=== PATIENT | male | born 1950 | race Caucasian/White ===

== ENCOUNTER 2024-02-21 13:39 | Emergency (ER) | payer MEDICARE ==
[2024-02-21 14:28] LABS: INR 1.76; PROTHROMBIN TIME 18.1 SECONDS (9.7-12.0)
[2024-02-21 14:29] LABS: PTT,PARTIAL THROMBOPLSTIN TIME 34.2 SECONDS (21.7-31.4)
[2024-02-21 14:34] LABS: A/G RATIO 0.6 (1-2); ALBUMIN 2.1 g/dl (3.4-5.0); ANION GAP 12.7 (5-15); BILIRUBIN TOTAL 2.3 mg/dL (0.2-1.0); BUN/CREATININE RATIO 9.1 (14-18); CALCIUM 8.3 mg/dL (8.5-10.1); CREATININE 1.1 mg/dL (0.7-1.3); EST CRCL DRUG DOSING (CG) 57.86 mL/min; POTASSIUM,K 3.7 mEq/L (3.5-5.1); PROTEIN TOTAL,TP 5.9 g/dl (6.4-8.2)
[2024-02-21] MEDS: Sodium Chloride 0.9% 500 ML IV ONE (16:45)
[2024-02-21] MEDS: Sodium Chloride 0.9% 10 ML Syringe FLUSH PRN (20:35)
[2024-02-21 21:28] VITALS: BP 122/60; PULSE 89
== END 2024-02-21 20:44 | disposition home or self-care (01) ==
LOC: JD.ED 13:39
DX: D64.89 Other specified anemias (principal); K21.9 Gastro-esophageal reflux disease without esophagitis; E66.9 Obesity, unspecified; Z88.8 Allergy status to other drugs, medicaments and biological substances; Z91.048 Other nonmedicinal substance allergy status; Z79.84 Long term (current) use of oral hypoglycemic drugs; Z79.899 Other long term (current) drug therapy; Z68.41 Body mass index [BMI] 40.0-44.9, adult
CPT/HCPCS: 36415; 36430; 80053; 85610; 85730; 86850; 86900; 86901; 86922; 99284; J3490; J7040; P9016

== ENCOUNTER 2025-03-03 11:40 | Inpatient (IN) | payer MEDICARE, OTHER ==
[2025-03-03 13:02] LABS: EOSINOPHILS ABSOLUTE AUTO 0.3 K/mm3 (0.0-0.4); EOSINOPHILS PERCENT AUTO 8.5 % (0.0-6.0); HEMATOCRIT 26.7 % (42.0-52.0); HEMOGLOBIN 8.5 gm/dl (14.0-18.0); LYMPHOCYTES ABSOLUTE AUTO 1.2 K/mm3 (1.0-4.8); LYMPHOCYTES PERCENT AUTO 37.9 % (24.0-44.0); MEAN CORPUSCULAR HEMOGLOBIN 34.4 pg (28.0-32.0); MEAN CORPUSCULAR HGB CONC 31.8 g/dl (32.0-36.0); MEAN PLATELET VOLUME 9.7 fl (9.4-12.4); MONOCYTES ABSOLUTE AUTO 0.2 K/mm3 (0.0-0.8); MONOCYTES PERCENT AUTO 7.2 % (0.0-8.0); NEUTROPHILS ABSOLUTE AUTO 1.4 K/mm3 (1.8-7.7); NEUTROPHILS PERCENT AUTO 45.4 % (41.0-71.0); PLATELET COUNT,PLT 50 K/mm3 (150-400); RED BLOOD CELL COUNT 2.47 M/mm3 (4.52-5.90); WHITE BLOOD CELL COUNT,WBC 3.06 K/mm3 (3.9-11.3)
[2025-03-03 13:04] LABS: MEAN CORPUSCULAR VOLUME 108.1 fl (83.0-99.0)
[2025-03-03] MEDS: Sodium Chloride 0.9% 10 ML Syringe FLUSH PRN (13:34)
[2025-03-03] MEDS: Furosemide 40 MG/4 ML VIAL IVPUSH ONE (13:34)
[2025-03-03 13:37] LABS: A/G RATIO 0.4 (1-2); ALBUMIN 1.6 g/dl (3.4-5.0); ANION GAP 9.9 (5-15); BILIRUBIN TOTAL 3.9 mg/dL (0.2-1.0); CALCIUM 7.9 mg/dL (8.5-10.1); EST CRCL DRUG DOSING (CG) 78.38 mL/min; POTASSIUM,K 3.9 mEq/L (3.5-5.1)
[2025-03-03 13:39] LABS: SLIDE REVIEW ABNORMAL SMEAR
[2025-03-03 13:43] LABS: CREATININE 0.8 mg/dL (0.7-1.3); PROTEIN TOTAL,TP 5.8 g/dl (6.4-8.2)
[2025-03-03 13:56] LABS: BUN/CREATININE RATIO 12.5 (14-18)
[2025-03-03 14:31] LABS: APPEARANCE,URINE CLEAR (Clear); BILIRUBIN,URINE NEGATIVE (Negative); COLOR,URINE YELLOW (Yellow); GLUCOSE,URINE NEGATIVE (Negative); KETONES,URINE NEGATIVE (Negative); LEUKOCYTE ESTERASE,URINE TRACE (Negative); NITRITE,URINE NEGATIVE (Negative); OCCULT BLOOD,URINE TRACE-INTACT (Negative); PH,URINE 6.5 (5.0-8.0); PROTEIN,URINE NEGATIVE (Negative)
[2025-03-03 14:34] LABS: INR 1.91; PROTHROMBIN TIME 19.4 SECONDS (9.7-12.0)
[2025-03-03] MEDS ORDERED: Acetaminophen 325 MG Tab PO PRN (14:36)
[2025-03-03 14:38] LABS: TSH 1.977 uIU/mL (0.358-3.74)
[2025-03-03] MEDS: Iopamidol 612 MG/ML 30 ML SDV IVPUSH ONE (15:11)
[2025-03-03] MEDS: Iopamidol 612 MG/ML 100 ML Bottle IVPUSH ONE (15:11)
[2025-03-03 15:17] LABS: BACTERIA,URINE FEW /hpf (FEW); MUCUS,URINE MODERATE /hpf (FEW)
[2025-03-03] MEDS ORDERED: 50% Dextrose in Water 50 ML Syringe IVPUSH PRN (16:10)
[2025-03-03 16:50] LABS: FOLIC ACID 12.4 ng/mL (8.6-58.9)
[2025-03-03] MEDS: Insulin Lispro 100 Unit/ML 3 ML KwikPen SUBCUT SCH (17:15)
[2025-03-04 04:19] LABS: BASOPHILS PERCENT AUTO 1.1 % (0.0-1.0); EOSINOPHILS ABSOLUTE AUTO 0.3 K/mm3 (0.0-0.4); EOSINOPHILS PERCENT AUTO 7.1 % (0.0-6.0); HEMATOCRIT 27.4 % (42.0-52.0); HEMOGLOBIN 8.7 gm/dl (14.0-18.0); IMMATURE GRAN ABSOLUTE AUTO 0.01 K/mm3 (0.00-0.05); IMMATURE GRAN PERCENT AUTO 0.3 % (0.0-0.4); LYMPHOCYTES ABSOLUTE AUTO 1.9 K/mm3 (1.0-4.8); LYMPHOCYTES PERCENT AUTO 50.5 % (24.0-44.0); MEAN CORPUSCULAR HEMOGLOBIN 34.3 pg (28.0-32.0); MEAN CORPUSCULAR HGB CONC 31.8 g/dl (32.0-36.0); MEAN CORPUSCULAR VOLUME 107.9 fl (83.0-99.0); MONOCYTES ABSOLUTE AUTO 0.3 K/mm3 (0.0-0.8); MONOCYTES PERCENT AUTO 7.1 % (0.0-8.0); NEUTROPHILS ABSOLUTE AUTO 1.2 K/mm3 (1.8-7.7); NEUTROPHILS PERCENT AUTO 33.9 % (41.0-71.0); PLATELET COUNT,PLT 49 K/mm3 (150-400); RED BLOOD CELL COUNT 2.54 M/mm3 (4.52-5.90); WHITE BLOOD CELL COUNT,WBC 3.66 K/mm3 (3.9-11.3)
[2025-03-04 04:38] LABS: A/G RATIO 0.4 (1-2); ALBUMIN 1.7 g/dl (3.4-5.0); ANION GAP 8.4 (5-15); BILIRUBIN TOTAL 4.6 mg/dL (0.2-1.0); BUN/CREATININE RATIO 12.9 (14-18); CALCIUM 8.3 mg/dL (8.5-10.1); CREATININE 0.7 mg/dL (0.7-1.3); EST CRCL DRUG DOSING (CG) 89.57 mL/min; POTASSIUM,K 3.4 mEq/L (3.5-5.1); PROTEIN TOTAL,TP 5.9 g/dl (6.4-8.2)
[2025-03-04 05:31] LABS: SLIDE REVIEW ABNORMAL SMEAR
[2025-03-04] MEDS: Pantoprazole 40 MG Tab.CR PO SCH (06:07)
[2025-03-04] MEDS ORDERED: Spironolactone 100 MG Tab PO SCH (09:00)
[2025-03-04] MEDS: Spironolactone 100 MG Tab PO SCH (09:03)
[2025-03-04] MEDS: Furosemide 80 MG Tab PO SCH (09:03)
[2025-03-04] MEDS: Tamsulosin 0.4 MG Cap.ER PO SCH (09:03)
[2025-03-04] MEDS: Rosuvastatin 10 MG Tab PO SCH (09:03)
[2025-03-04 16:29] LABS: APPEARANCE,BODY FLUID SLIGHTLY CLOUDY; COLOR,BODY FLUID YELLOW; SITE,BODY FLUID PERITONEAL; VOLUME BODY FLUID 2 ML
[2025-03-04 16:30] LABS: WBC BODY FLUID 388 /uL (0-0)
[2025-03-04 16:33] LABS: RBC,BODY FLUID 0 /uL (0-0)
[2025-03-04 16:34] LABS: POLYMORPHONUCLEAR, BODY FLUID 4.9 % (0.0-0.0)
[2025-03-04 16:35] LABS: MONONUCLEAR, BODY FLUID 95.1 % (0.0-0.0)
[2025-03-05 04:24] LABS: BASOPHILS PERCENT AUTO 0.8 % (0.0-1.0); EOSINOPHILS ABSOLUTE AUTO 0.2 K/mm3 (0.0-0.4); EOSINOPHILS PERCENT AUTO 6.2 % (0.0-6.0); HEMATOCRIT 24.4 % (42.0-52.0); HEMOGLOBIN 7.8 gm/dl (14.0-18.0); IMMATURE GRAN ABSOLUTE AUTO 0.01 K/mm3 (0.00-0.05); IMMATURE GRAN PERCENT AUTO 0.4 % (0.0-0.4); LYMPHOCYTES ABSOLUTE AUTO 1.3 K/mm3 (1.0-4.8); MEAN CORPUSCULAR HEMOGLOBIN 34.5 pg (28.0-32.0); MEAN PLATELET VOLUME 10.5 fl (9.4-12.4); MONOCYTES ABSOLUTE AUTO 0.2 K/mm3 (0.0-0.8); MONOCYTES PERCENT AUTO 6.9 % (0.0-8.0); NEUTROPHILS ABSOLUTE AUTO 0.9 K/mm3 (1.8-7.7); NEUTROPHILS PERCENT AUTO 35.7 % (41.0-71.0); PLATELET COUNT,PLT 42 K/mm3 (150-400); RED BLOOD CELL COUNT 2.26 M/mm3 (4.52-5.90)
[2025-03-05 04:30] VITALS: BP 116/61; PULSE 85
[2025-03-05 04:50] LABS: A/G RATIO 0.4 (1-2); ALBUMIN 1.5 g/dl (3.4-5.0); ANION GAP 7.4 (5-15); BILIRUBIN TOTAL 4.1 mg/dL (0.2-1.0); BUN/CREATININE RATIO 11.4 (14-18); CALCIUM 7.7 mg/dL (8.5-10.1); CREATININE 0.7 mg/dL (0.7-1.3); EST CRCL DRUG DOSING (CG) 89.57 mL/min; POTASSIUM,K 3.4 mEq/L (3.5-5.1); PROTEIN TOTAL,TP 5.2 g/dl (6.4-8.2)
[2025-03-05 06:13] LABS: MAGNESIUM 1.4 mg/dL (1.8-2.4)
[2025-03-05 06:26] LABS: SLIDE REVIEW ABNORMAL SMEAR
[2025-03-05] MEDS: Potassium Chloride 20 MEQ Tab.ER PO ONE (08:03)
[2025-03-05] MEDS: Spironolactone 100 MG Tab PO SCH (08:04)
[2025-03-05] MEDS: Magnesium Sulfate 2 GM/50 mL 2 GM in Premix Bag 1 BAG IV ONE (08:09)
[2025-03-08 04:47] LABS: CERULOPLASMIN 14 mg/dL (15-30)
[2025-03-08 07:47] LABS: ANA BY ELISA, IGG W/RFX TO IFA Detected (None Detected)
[2025-03-09 11:46] LABS: ANA,HEP-2,IGG Detected (<1:80)
== END 2025-03-05 12:41 | disposition home or self-care (01) | DRG 433 ==
LOC: JD.ED 11:40 → JD.MS 14:36
PROVIDERS: ADMIT Family Medicine; ATTEND Family Medicine
PROC: 0W9G3ZZ Drainage of Peritoneal Cavity, Percutaneous Approach (ICD-10-PCS; principal; 2025-03-04)
DX: D64.89 Other specified anemias (principal); K74.60 Unspecified cirrhosis of liver; J91.8 Pleural effusion in other conditions classified elsewhere; K76.6 Portal hypertension; R18.8 Other ascites; H54.7 Unspecified visual loss; K21.9 Gastro-esophageal reflux disease without esophagitis; M54.9 Dorsalgia, unspecified; G89.29 Other chronic pain; F41.9 Anxiety disorder, unspecified; F32.A Depression, unspecified; E66.9 Obesity, unspecified; D69.6 Thrombocytopenia, unspecified; E11.42 Type 2 diabetes mellitus with diabetic polyneuropathy; D53.9 Nutritional anemia, unspecified; D70.9 Neutropenia, unspecified; N40.0 Benign prostatic hyperplasia without lower urinary tract symptoms; R16.1 Splenomegaly, not elsewhere classified; Z88.5 Allergy status to narcotic agent; Z91.048 Other nonmedicinal substance allergy status; Z87.891 Personal history of nicotine dependence; Z68.37 Body mass index [BMI] 37.0-37.9, adult; Z87.11 Personal history of peptic ulcer disease; Z85.6 Personal history of leukemia; Z85.828 Personal history of other malignant neoplasm of skin; Z98.890 Other specified postprocedural states; Z79.899 Other long term (current) drug therapy; Z79.84 Long term (current) use of oral hypoglycemic drugs
CPT/HCPCS: 36415; 71046; 74177; 80053; 81001; 82140; 82607; 82728; 82746; 83540; 83880; 84443; 84466; 84484; 85025; 85610; 87086; 93005; 96374; 99285; J1938; 80074; 80307; 82272; 82390; 82784; 82947; 83735; 84100; 86038; 87070; 87075; 87205; 89050; 93010; 93306; 94760; 97116-GP; 97161-GP; A9270-GY; J3475; Q9967

== ENCOUNTER 2025-06-22 11:37 | Inpatient (IN) | payer MEDICARE, OTHER ==
[2025-06-22 12:20] LABS: BASOPHILS ABSOLUTE AUTO 0.0 K/mm3 (0.0-0.2); BASOPHILS PERCENT AUTO 0.9 % (0.0-1.0); EOSINOPHILS ABSOLUTE AUTO 0.3 K/mm3 (0.0-0.4); EOSINOPHILS PERCENT AUTO 5.9 % (0.0-6.0); IMMATURE GRAN ABSOLUTE AUTO 0.01 K/mm3 (0.00-0.05); IMMATURE GRAN PERCENT AUTO 0.2 % (0.0-0.4); LYMPHOCYTES ABSOLUTE AUTO 1.3 K/mm3 (1.0-4.8); LYMPHOCYTES PERCENT AUTO 29.3 % (24.0-44.0); MEAN PLATELET VOLUME 9.9 fl (9.4-12.4); MONOCYTES ABSOLUTE AUTO 0.3 K/mm3 (0.0-0.8); MONOCYTES PERCENT AUTO 6.8 % (0.0-8.0); NEUTROPHILS ABSOLUTE AUTO 2.5 K/mm3 (1.8-7.7); NEUTROPHILS PERCENT AUTO 56.9 % (41.0-71.0); NRBC ABSOLUTE 0.00 (0.00-0.02); NRBC PERCENT 0.0 % (0.0-0.2); PLATELET COUNT,PLT 63 K/mm3 (150-400); RED BLOOD CELL COUNT 2.57 M/mm3 (4.52-5.90); WHITE BLOOD CELL COUNT,WBC 4.43 K/mm3 (3.9-11.3)
[2025-06-22] MEDS: Furosemide 100 MG/10 ML SDV IVPUSH ONE (12:29)
[2025-06-22 12:37] LABS: INR 2.01
[2025-06-22 12:44] LABS: A/G RATIO 0.4 (1-2); ALANINE AMINOTRANSFERASE,ALT 19.0 U/L (16-63); ASPARTATE AMNIOTRANSFERASE,AST 42.0 U/L (15-37); BILIRUBIN TOTAL 6.0 mg/dL (0.2-1.0); BLOOD UREA NITROGEN,BUN 11.0 mg/dL (7-18); CARBON DIOXIDE,CO2 25.0 mEq/L (21-32); CHLORIDE,CL 106.0 mEq/L (98-107); CREATINE KINASE,CK 123.0 U/L (39-308); EST CRCL DRUG DOSING (CG) 69.67 mL/min; ESTIMATED GFR 90.0 mL/min (>60); GLUCOSE RANDOM 116.0 mg/dL (70-99); POTASSIUM,K 3.7 mEq/L (3.5-5.1); SODIUM,NA 139.0 mEq/L (136-145); TROPONIN I HIGH SENSITIVITY 13.0 pg/mL (<=76)
[2025-06-22 12:47] LABS: PROTEIN TOTAL,TP 6.1 g/dl (6.4-8.2)
[2025-06-22 12:48] LABS: CREATININE 0.9 mg/dL (0.7-1.3)
[2025-06-22] MEDS: Lactulose Soln 10 GM/15 ML 30 ML UD Cup PO SCH (16:44)
[2025-06-22] MEDS ORDERED: 50% Dextrose in Water 50 ML Syringe IVPUSH PRN (17:29)
[2025-06-22] MEDS: Insulin Lispro 100 Unit/ML 3 ML KwikPen SUBCUT SCH (20:10)
[2025-06-22 20:53] LABS: LACTIC ACID 2.6 mmol/L (0.4-2.0)
[2025-06-22 21:40] LABS: APPEARANCE,URINE CLEAR (Clear); GLUCOSE,URINE NEGATIVE (Negative); OCCULT BLOOD,URINE NEGATIVE (Negative)
[2025-06-22 21:46] LABS: EPITHELIAL CELLS,URINE 0-5 /hpf (0-5)
[2025-06-23 02:20] LABS: BASOPHILS ABSOLUTE AUTO 0.0 K/mm3 (0.0-0.2); BASOPHILS PERCENT AUTO 0.9 % (0.0-1.0); EOSINOPHILS ABSOLUTE AUTO 0.3 K/mm3 (0.0-0.4); EOSINOPHILS PERCENT AUTO 8.4 % (0.0-6.0); IMMATURE GRAN ABSOLUTE AUTO 0.01 K/mm3 (0.00-0.05); IMMATURE GRAN PERCENT AUTO 0.3 % (0.0-0.4); LYMPHOCYTES ABSOLUTE AUTO 1.4 K/mm3 (1.0-4.8); LYMPHOCYTES PERCENT AUTO 41.3 % (24.0-44.0); MEAN PLATELET VOLUME 11.2 fl (9.4-12.4); MONOCYTES ABSOLUTE AUTO 0.3 K/mm3 (0.0-0.8); MONOCYTES PERCENT AUTO 7.8 % (0.0-8.0); NEUTROPHILS ABSOLUTE AUTO 1.4 K/mm3 (1.8-7.7); NEUTROPHILS PERCENT AUTO 41.3 % (41.0-71.0); NRBC ABSOLUTE 0.00 (0.00-0.02); NRBC PERCENT 0.0 % (0.0-0.2); PLATELET COUNT,PLT 50 K/mm3 (150-400); RED BLOOD CELL COUNT 2.20 M/mm3 (4.52-5.90); WHITE BLOOD CELL COUNT,WBC 3.46 K/mm3 (3.9-11.3)
[2025-06-23 02:40] LABS: A/G RATIO 0.4 (1-2); ALANINE AMINOTRANSFERASE,ALT 15.0 U/L (16-63); ASPARTATE AMNIOTRANSFERASE,AST 39.0 U/L (15-37); BILIRUBIN TOTAL 4.2 mg/dL (0.2-1.0); BLOOD UREA NITROGEN,BUN 10.0 mg/dL (7-18); CARBON DIOXIDE,CO2 28.0 mEq/L (21-32); CHLORIDE,CL 107.0 mEq/L (98-107); EST CRCL DRUG DOSING (CG) 89.57 mL/min; ESTIMATED GFR 97.0 mL/min (>60); GLUCOSE RANDOM 116.0 mg/dL (70-99); POTASSIUM,K 3.1 mEq/L (3.5-5.1); SODIUM,NA 139.0 mEq/L (136-145)
[2025-06-23 02:50] LABS: CREATININE 0.7 mg/dL (0.7-1.3); PROTEIN TOTAL,TP 5.3 g/dl (6.4-8.2)
[2025-06-23] MEDS: Potassium Chloride 20 MEQ Tab.ER PO SCH (09:04)
[2025-06-23] MEDS: Magnesium Sulf/Wat 4 GM/50 mL 4 GM in Premix Bag 1 BAG IV ONE (09:27)
[2025-06-23] MEDS ORDERED: Magnesium Sulfate 2 GM/50 mL 2 GM in Premix Bag 1 BAG IV ONE (10:26)
[2025-06-23] MEDS: Lactulose Soln 10 GM/15 ML 30 ML UD Cup PO SCH (14:28)
[2025-06-24 04:28] LABS: BASOPHILS ABSOLUTE AUTO 0.0 K/mm3 (0.0-0.2); BASOPHILS PERCENT AUTO 1.0 % (0.0-1.0); EOSINOPHILS ABSOLUTE AUTO 0.1 K/mm3 (0.0-0.4); EOSINOPHILS PERCENT AUTO 4.9 % (0.0-6.0); IMMATURE GRAN ABSOLUTE AUTO 0.01 K/mm3 (0.00-0.05); IMMATURE GRAN PERCENT AUTO 0.3 % (0.0-0.4); LYMPHOCYTES ABSOLUTE AUTO 1.0 K/mm3 (1.0-4.8); LYMPHOCYTES PERCENT AUTO 36.1 % (24.0-44.0); MEAN PLATELET VOLUME 11.5 fl (9.4-12.4); MONOCYTES ABSOLUTE AUTO 0.2 K/mm3 (0.0-0.8); MONOCYTES PERCENT AUTO 5.9 % (0.0-8.0); NEUTROPHILS ABSOLUTE AUTO 1.5 K/mm3 (1.8-7.7); NEUTROPHILS PERCENT AUTO 51.8 % (41.0-71.0); NRBC ABSOLUTE 0.00 (0.00-0.02); NRBC PERCENT 0.0 % (0.0-0.2); PLATELET COUNT,PLT 48 K/mm3 (150-400); RED BLOOD CELL COUNT 2.29 M/mm3 (4.52-5.90); WHITE BLOOD CELL COUNT,WBC 2.88 K/mm3 (3.9-11.3)
[2025-06-24 04:43] LABS: INR 2.05
[2025-06-24 04:58] LABS: A/G RATIO 0.4 (1-2); ALANINE AMINOTRANSFERASE,ALT 15.0 U/L (16-63); ASPARTATE AMNIOTRANSFERASE,AST 37.0 U/L (15-37); BILIRUBIN TOTAL 4.4 mg/dL (0.2-1.0); BLOOD UREA NITROGEN,BUN 9.0 mg/dL (7-18); CARBON DIOXIDE,CO2 32.0 mEq/L (21-32); CHLORIDE,CL 105.0 mEq/L (98-107); EST CRCL DRUG DOSING (CG) 89.57 mL/min; ESTIMATED GFR 97.0 mL/min (>60); GLUCOSE RANDOM 116.0 mg/dL (70-99); POTASSIUM,K 4.0 mEq/L (3.5-5.1); SODIUM,NA 139.0 mEq/L (136-145)
[2025-06-24 05:23] LABS: CREATININE 0.7 mg/dL (0.7-1.3)
[2025-06-24 05:24] LABS: PROTEIN TOTAL,TP 5.6 g/dl (6.4-8.2)
[2025-06-24] MEDS: Magnesium Sulf/Wat 4 GM/50 mL 4 GM in Premix Bag 1 BAG IV ONE (07:30)
[2025-06-24] MEDS: Lactulose Soln 10 GM/15 ML 30 ML UD Cup PO PRN (17:19)
[2025-06-25 04:30] LABS: BASOPHILS ABSOLUTE AUTO 0.0 K/mm3 (0.0-0.2); BASOPHILS PERCENT AUTO 1.2 % (0.0-1.0); EOSINOPHILS ABSOLUTE AUTO 0.3 K/mm3 (0.0-0.4); EOSINOPHILS PERCENT AUTO 7.6 % (0.0-6.0); IMMATURE GRAN ABSOLUTE AUTO 0.00 K/mm3 (0.00-0.05); IMMATURE GRAN PERCENT AUTO 0.0 % (0.0-0.4); LYMPHOCYTES ABSOLUTE AUTO 1.6 K/mm3 (1.0-4.8); LYMPHOCYTES PERCENT AUTO 47.6 % (24.0-44.0); MEAN PLATELET VOLUME 9.5 fl (9.4-12.4); MONOCYTES ABSOLUTE AUTO 0.2 K/mm3 (0.0-0.8); MONOCYTES PERCENT AUTO 6.5 % (0.0-8.0); NEUTROPHILS ABSOLUTE AUTO 1.3 K/mm3 (1.8-7.7); NEUTROPHILS PERCENT AUTO 37.1 % (41.0-71.0); NRBC ABSOLUTE 0.00 (0.00-0.02); NRBC PERCENT 0.0 % (0.0-0.2); PLATELET COUNT,PLT 41 K/mm3 (150-400); RED BLOOD CELL COUNT 2.14 M/mm3 (4.52-5.90); WHITE BLOOD CELL COUNT,WBC 3.40 K/mm3 (3.9-11.3)
[2025-06-25 04:45] LABS: INR 2.05
[2025-06-25 04:58] LABS: A/G RATIO 0.4 (1-2); ALANINE AMINOTRANSFERASE,ALT 12.0 U/L (16-63); ASPARTATE AMNIOTRANSFERASE,AST 37.0 U/L (15-37); BILIRUBIN TOTAL 3.9 mg/dL (0.2-1.0); BLOOD UREA NITROGEN,BUN 10.0 mg/dL (7-18); CARBON DIOXIDE,CO2 31.0 mEq/L (21-32); CHLORIDE,CL 105.0 mEq/L (98-107); EST CRCL DRUG DOSING (CG) 78.38 mL/min; ESTIMATED GFR 93.0 mL/min (>60); GLUCOSE RANDOM 103.0 mg/dL (70-99); POTASSIUM,K 3.9 mEq/L (3.5-5.1); SODIUM,NA 138.0 mEq/L (136-145)
[2025-06-25 05:11] LABS: CREATININE 0.8 mg/dL (0.7-1.3); PROTEIN TOTAL,TP 5.3 g/dl (6.4-8.2)
[2025-06-25] MEDS: Magnesium Sulf/Wat 4 GM/50 mL 4 GM in Premix Bag 1 BAG IV ONE (09:31)
[2025-06-26 07:21] LABS: BASOPHILS ABSOLUTE AUTO 0.0 K/mm3 (0.0-0.2); BASOPHILS PERCENT AUTO 0.9 % (0.0-1.0); EOSINOPHILS ABSOLUTE AUTO 0.2 K/mm3 (0.0-0.4); EOSINOPHILS PERCENT AUTO 5.8 % (0.0-6.0); IMMATURE GRAN ABSOLUTE AUTO 0.01 K/mm3 (0.00-0.05); IMMATURE GRAN PERCENT AUTO 0.3 % (0.0-0.4); LYMPHOCYTES ABSOLUTE AUTO 1.6 K/mm3 (1.0-4.8); LYMPHOCYTES PERCENT AUTO 45.1 % (24.0-44.0); MEAN PLATELET VOLUME 9.5 fl (9.4-12.4); MONOCYTES ABSOLUTE AUTO 0.3 K/mm3 (0.0-0.8); MONOCYTES PERCENT AUTO 8.4 % (0.0-8.0); NEUTROPHILS ABSOLUTE AUTO 1.4 K/mm3 (1.8-7.7); NEUTROPHILS PERCENT AUTO 39.5 % (41.0-71.0); NRBC ABSOLUTE 0.00 (0.00-0.02); NRBC PERCENT 0.0 % (0.0-0.2); PLATELET COUNT,PLT 38 K/mm3 (150-400); RED BLOOD CELL COUNT 2.26 M/mm3 (4.52-5.90); WHITE BLOOD CELL COUNT,WBC 3.44 K/mm3 (3.9-11.3)
[2025-06-26 07:39] LABS: INR 2.07
[2025-06-26 07:52] LABS: A/G RATIO 0.4 (1-2); ALANINE AMINOTRANSFERASE,ALT 12.0 U/L (16-63); ASPARTATE AMNIOTRANSFERASE,AST 35.0 U/L (15-37); BILIRUBIN TOTAL 3.5 mg/dL (0.2-1.0); BLOOD UREA NITROGEN,BUN 11.0 mg/dL (7-18); CARBON DIOXIDE,CO2 32.0 mEq/L (21-32); CHLORIDE,CL 101.0 mEq/L (98-107); CREATININE 0.8 mg/dL (0.7-1.3); EST CRCL DRUG DOSING (CG) 78.38 mL/min; ESTIMATED GFR 93.0 mL/min (>60); GLUCOSE RANDOM 94.0 mg/dL (70-99); POTASSIUM,K 3.9 mEq/L (3.5-5.1); PROTEIN TOTAL,TP 5.6 g/dl (6.4-8.2); SODIUM,NA 136.0 mEq/L (136-145)
[2025-06-26] MEDS: Furosemide 40 MG/4 ML VIAL IVPUSH ONE (11:15)
[2025-06-27 07:04] LABS: A/G RATIO 0.4 (1-2); ALANINE AMINOTRANSFERASE,ALT 11.0 U/L (16-63); ASPARTATE AMNIOTRANSFERASE,AST 37.0 U/L (15-37); BILIRUBIN TOTAL 3.3 mg/dL (0.2-1.0); BLOOD UREA NITROGEN,BUN 14.0 mg/dL (7-18); CARBON DIOXIDE,CO2 33.0 mEq/L (21-32); CHLORIDE,CL 100.0 mEq/L (98-107); CREATININE 0.9 mg/dL (0.7-1.3); EST CRCL DRUG DOSING (CG) 69.67 mL/min; ESTIMATED GFR 90.0 mL/min (>60); GLUCOSE RANDOM 88.0 mg/dL (70-99); POTASSIUM,K 3.8 mEq/L (3.5-5.1); PROTEIN TOTAL,TP 5.6 g/dl (6.4-8.2); SODIUM,NA 136.0 mEq/L (136-145)
[2025-06-27] MEDS: Furosemide 40 MG/4 ML VIAL IVPUSH ONE (15:21)
[2025-06-28 04:28] LABS: BASOPHILS ABSOLUTE AUTO 0.0 K/mm3 (0.0-0.2); BASOPHILS PERCENT AUTO 0.9 % (0.0-1.0); EOSINOPHILS ABSOLUTE AUTO 0.2 K/mm3 (0.0-0.4); EOSINOPHILS PERCENT AUTO 5.2 % (0.0-6.0); IMMATURE GRAN ABSOLUTE AUTO 0.00 K/mm3 (0.00-0.05); IMMATURE GRAN PERCENT AUTO 0.0 % (0.0-0.4); LYMPHOCYTES ABSOLUTE AUTO 1.4 K/mm3 (1.0-4.8); LYMPHOCYTES PERCENT AUTO 43.7 % (24.0-44.0); MEAN PLATELET VOLUME 11.5 fl (9.4-12.4); MONOCYTES ABSOLUTE AUTO 0.3 K/mm3 (0.0-0.8); MONOCYTES PERCENT AUTO 7.7 % (0.0-8.0); NEUTROPHILS ABSOLUTE AUTO 1.4 K/mm3 (1.8-7.7); NEUTROPHILS PERCENT AUTO 42.5 % (41.0-71.0); NRBC ABSOLUTE 0.00 (0.00-0.02); NRBC PERCENT 0.0 % (0.0-0.2); PLATELET COUNT,PLT 46 K/mm3 (150-400); RED BLOOD CELL COUNT 2.14 M/mm3 (4.52-5.90); WHITE BLOOD CELL COUNT,WBC 3.25 K/mm3 (3.9-11.3)
[2025-06-28] MEDS: Potassium Chloride 20 MEQ Tab.ER PO SCH (10:02)
[2025-06-28] MEDS: Ondansetron 4 MG/2 ML SDV IVPUSH PRN (16:24)
[2025-06-28] MEDS: Lactulose Soln 10 GM/15 ML 30 ML UD Cup PO SCH (16:41)
[2025-06-29 04:24] LABS: BASOPHILS ABSOLUTE AUTO 0.0 K/mm3 (0.0-0.2); BASOPHILS PERCENT AUTO 0.6 % (0.0-1.0); EOSINOPHILS ABSOLUTE AUTO 0.1 K/mm3 (0.0-0.4); EOSINOPHILS PERCENT AUTO 3.3 % (0.0-6.0); IMMATURE GRAN ABSOLUTE AUTO 0.01 K/mm3 (0.00-0.05); IMMATURE GRAN PERCENT AUTO 0.3 % (0.0-0.4); LYMPHOCYTES ABSOLUTE AUTO 1.0 K/mm3 (1.0-4.8); LYMPHOCYTES PERCENT AUTO 31.3 % (24.0-44.0); MEAN PLATELET VOLUME 11.5 fl (9.4-12.4); MONOCYTES ABSOLUTE AUTO 0.3 K/mm3 (0.0-0.8); MONOCYTES PERCENT AUTO 9.4 % (0.0-8.0); NEUTROPHILS ABSOLUTE AUTO 1.8 K/mm3 (1.8-7.7); NEUTROPHILS PERCENT AUTO 55.1 % (41.0-71.0); NRBC ABSOLUTE 0.00 (0.00-0.02); NRBC PERCENT 0.0 % (0.0-0.2); PLATELET COUNT,PLT 57 K/mm3 (150-400); RED BLOOD CELL COUNT 2.19 M/mm3 (4.52-5.90); WHITE BLOOD CELL COUNT,WBC 3.29 K/mm3 (3.9-11.3)
[2025-06-29 04:48] LABS: A/G RATIO 0.5 (1-2); ALANINE AMINOTRANSFERASE,ALT 11.0 U/L (16-63); ASPARTATE AMNIOTRANSFERASE,AST 39.0 U/L (15-37); BILIRUBIN TOTAL 4.0 mg/dL (0.2-1.0); BLOOD UREA NITROGEN,BUN 17.0 mg/dL (7-18); CARBON DIOXIDE,CO2 34.0 mEq/L (21-32); CHLORIDE,CL 103.0 mEq/L (98-107); CREATININE 0.9 mg/dL (0.7-1.3); EST CRCL DRUG DOSING (CG) 69.67 mL/min; ESTIMATED GFR 90.0 mL/min (>60); GLUCOSE RANDOM 113.0 mg/dL (70-99); POTASSIUM,K 4.0 mEq/L (3.5-5.1); PROTEIN TOTAL,TP 5.8 g/dl (6.4-8.2); SODIUM,NA 140.0 mEq/L (136-145)
[2025-06-29] MEDS: Magnesium Sulf/Wat 4 GM/50 mL 4 GM in Premix Bag 1 BAG IV ONE (08:29)
[2025-06-29] MEDS: Sodium Chloride 0.9% 10 ML Syringe FLUSH PRN (09:43)
[2025-06-29] MEDS: Iopamidol 755 Mg/ML 100 ML Bottle IVPUSH ONE (09:44)
[2025-06-29 11:48] LABS: APPEARANCE,URINE CLEAR (Clear); GLUCOSE,URINE NEGATIVE (Negative); OCCULT BLOOD,URINE NEGATIVE (Negative)
[2025-06-29] MEDS: cefTRIAXone 2 GM in Water For Injection, Sterile 20 ML IVPUSH SCH (12:46)
[2025-06-29] MEDS: Magnesium Citrate Solution 296 ML Bottle PO ONE (13:42)
[2025-06-30 09:42] LABS: BASOPHILS ABSOLUTE AUTO 0.0 K/mm3 (0.0-0.2); BASOPHILS PERCENT AUTO 0.5 % (0.0-1.0); EOSINOPHILS ABSOLUTE AUTO 0.1 K/mm3 (0.0-0.4); EOSINOPHILS PERCENT AUTO 1.4 % (0.0-6.0); IMMATURE GRAN ABSOLUTE AUTO 0.02 K/mm3 (0.00-0.05); IMMATURE GRAN PERCENT AUTO 0.5 % (0.0-0.4); LYMPHOCYTES ABSOLUTE AUTO 1.2 K/mm3 (1.0-4.8); LYMPHOCYTES PERCENT AUTO 26.2 % (24.0-44.0); MEAN PLATELET VOLUME 10.4 fl (9.4-12.4); MONOCYTES ABSOLUTE AUTO 0.3 K/mm3 (0.0-0.8); MONOCYTES PERCENT AUTO 7.5 % (0.0-8.0); NEUTROPHILS ABSOLUTE AUTO 2.8 K/mm3 (1.8-7.7); NEUTROPHILS PERCENT AUTO 63.9 % (41.0-71.0); NRBC ABSOLUTE 0.00 (0.00-0.02); NRBC PERCENT 0.0 % (0.0-0.2); PLATELET COUNT,PLT 61 K/mm3 (150-400); RED BLOOD CELL COUNT 2.44 M/mm3 (4.52-5.90); WHITE BLOOD CELL COUNT,WBC 4.42 K/mm3 (3.9-11.3)
[2025-06-30 10:37] LABS: A/G RATIO 0.4 (1-2); ALANINE AMINOTRANSFERASE,ALT 11.0 U/L (16-63); ASPARTATE AMNIOTRANSFERASE,AST 40.0 U/L (15-37); BILIRUBIN TOTAL 4.5 mg/dL (0.2-1.0); BLOOD UREA NITROGEN,BUN 19.0 mg/dL (7-18); CARBON DIOXIDE,CO2 32.0 mEq/L (21-32); CHLORIDE,CL 100.0 mEq/L (98-107); EST CRCL DRUG DOSING (CG) 62.7 mL/min; ESTIMATED GFR 79.0 mL/min (>60); GLUCOSE RANDOM 116.0 mg/dL (70-99); POTASSIUM,K 4.2 mEq/L (3.5-5.1); SODIUM,NA 139.0 mEq/L (136-145)
[2025-06-30 10:50] LABS: CREATININE 1.0 mg/dL (0.7-1.3)
[2025-06-30 10:51] LABS: PROTEIN TOTAL,TP 6.0 g/dl (6.4-8.2)
[2025-06-30] MEDS: Magnesium Sulf/Wat 4 GM/50 mL 4 GM in Premix Bag 1 BAG IV ONE (16:24)
[2025-07-01 15:03] VITALS: BP 108/68; PULSE 72
== END 2025-07-01 14:55 | disposition home or self-care (01) | DRG 433 ==
LOC: JD.ED 11:37 → JD.MS 15:09
PROVIDERS: ADMIT Family Medicine; ATTEND Family Medicine
DX: K72.90 Hepatic failure, unspecified without coma (principal); I87.2 Venous insufficiency (chronic) (peripheral); K70.31 Alcoholic cirrhosis of liver with ascites; E87.20 Acidosis, unspecified; E11.9 Type 2 diabetes mellitus without complications; K76.6 Portal hypertension; L03.115 Cellulitis of right lower limb; Z88.5 Allergy status to narcotic agent; Z91.048 Other nonmedicinal substance allergy status; Z66 Do not resuscitate; I50.9 Heart failure, unspecified; J30.9 Allergic rhinitis, unspecified; H54.7 Unspecified visual loss; K21.9 Gastro-esophageal reflux disease without esophagitis; N42.9 Disorder of prostate, unspecified; M54.9 Dorsalgia, unspecified; G89.29 Other chronic pain; E11.42 Type 2 diabetes mellitus with diabetic polyneuropathy; F41.9 Anxiety disorder, unspecified; F32.A Depression, unspecified; D64.9 Anemia, unspecified; K40.90 Unilateral inguinal hernia, without obstruction or gangrene, not specified as recurrent; E66.9 Obesity, unspecified; R60.1 Generalized edema; K76.82 Hepatic encephalopathy; E83.42 Hypomagnesemia; F10.90 Alcohol use, unspecified, uncomplicated; E87.6 Hypokalemia; E88.09 Other disorders of plasma-protein metabolism, not elsewhere classified; Z88.8 Allergy status to other drugs, medicaments and biological substances; Z79.899 Other long term (current) drug therapy; Z79.84 Long term (current) use of oral hypoglycemic drugs; Z90.49 Acquired absence of other specified parts of digestive tract; Z98.890 Other specified postprocedural states; Z85.828 Personal history of other malignant neoplasm of skin; Z68.31 Body mass index [BMI] 31.0-31.9, adult
CPT/HCPCS: 36415; 80053; 82140; 82550; 83605; 83690; 83735; 84484; 85025; 85610; 96374; 99285; J1938; 71045; 71045-26; 71260; 71260-26; 74019; 74019-26; 74176; 74176-26; 81001; 81003; 82947; 83036; 84100; 85014; 85018; 94761; 97116-GP; 97162-GP; 97530-GP; 99223; 99232; 99233; 99239; A4216; A9270-GY; J0690; J0696; J1650; J2405; J3475; P9047; Q9967